=== PATIENT | male | born 1995 | race Caucasian/White ===

== ENCOUNTER 2016-06-19 15:46 | Emergency (ER) | payer BC ==
[~2016-06-19] VITALS: Ht 188 cm; Wt 85.0 kg
[~2016-06-19 15:46] MED LIST: FEXO1TAB58 PO; MULT-506 PO
[2016-06-19 15:49] VITALS: TEMP 36.7; Ht 188 cm; Wt 85.0 kg
[2016-06-19] MEDS ORDERED: LIDOCAINE/EPINEPH/TETRACAINE 1 EA SYR EXT STA (16:06)
[2016-06-19] MEDS ORDERED: IBUPROFEN 600 MG TAB PO STA (16:06)
[2016-06-19] MEDS ORDERED: XYLOCAINE 1%/SOD BICARB 20 ML VIAL INFIL ONE (16:15)
[2016-06-19] MEDS ORDERED: ONDANSETRON 4MG OD TAB PO ONE (16:15)
--- NOTE | 2016-06-19 16:37 | DIAGNOSTIC IMAGING REPORT ---
MAXILLOFACIAL CT WITHOUT CONTRAST CLINICAL HISTORY: Left orbital trauma. COMPARISON STUDY: Nasal bone radiographs December 29, 2010. TECHNIQUE: A maxillofacial CT was performed without IV contrast. Coronal and sagittal reformats were viewed. FINDINGS: No fractures are identified within visualized portions of the cervical spine. There is no skull base fracture. Alignment of the temporomandibular joints is anatomic. The globes are intact. There is a left infraorbital contusion. There is hemorrhage with an air-fluid level within left maxillary sinus. Note is made of a mildly displaced comminuted fracture of the anterior wall the left maxillary sinus as well as the lateral wall of the left maxillary sinus. The pterygoid plates are intact. There is a comminuted, mildly displaced fracture of the left orbital floor which involves the infraorbital foramen. There is slight herniation of a small amount of orbital fat through the defect. There is a comminuted, mildly displaced fracture of the lateral wall the left orbit as well as a mildly displaced fracture of the left zygomatic arch. There is moderate mucosal thickening of the sinuses. A small amount of gas within the left orbit. There is no retrobulbar hematoma. Globes are intact. IMPRESSION: 1. Acute comminuted, mildly displaced left orbital floor fracture which involves the infraorbital foramen with slight herniation of a small amount of orbital fat through the defect. 2. Acute mildly displaced fractures of the anterior and lateral terrell of the left maxillary sinus, the lateral wall of the left orbit and the left zygomatic arch. 3. Small amount of left orbital gas. Left infraorbital contusion. Globes intact with no retrobulbar hematoma. Electronically signed by: Tanmay Gonzalez M.D. 06/19/2016 4:36 PM Dictated Date/Time: 06/19/2016 4:23 PM
[2016-06-19] MEDS ORDERED: AMOX875T PO (17:36)
--- NOTE | 2016-06-19 17:40 | EMERGENCY ROOM VISIT NOTE ---
ED Visit Note First contact with patient: 15:52 CHIEF COMPLAINT: Left facial injury one hour ago History of present illness: He is a 20-year-old white male brought to the emergency department by his father for evaluation of a left facial injury that he sustained about an hour ago. He was playing basketball when he was accidentally elbowed in the face. He was struck below the left eye, on the left cheek. He has a laceration inferior to the left eye. He has left-sided epistaxis which has subsequently resolved. There is bruising and swelling inferior to the left eye. Patient did not lose consciousness, but had to stop playing. He does report a mild generalized headache with some associated nausea. He was seen at the [facility] walk-in clinic and referred to the emergency department for further care and evaluation. He does not wear glasses or contact lenses and states that his vision is not affected. Denies any jaw pain, chipped or loose teeth or malalignment. He denies any neck pain. REVIEW OF SYSTEMS: Review of systems as per HPI. All other systems reviewed were negative. At least 6 systems reviewed. PMH: Electronic medical records are reviewed and summarized as above/below. See Problem List. His tetanus is up-to-date. SOCIAL HISTORY: Patient lives at home with the parents. 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 PHYSICAL EXAM: Vital Signs: Reviewed Nurse's notes. CONSTITUTIONAL: Patient is an uncomfortable-appearing 20-year-old white female who is awake and alert and in no acute distress. His father is at the bedside. HEENT: Normocephalic, atraumatic. Pupils equal, round, reactive to light and accommodation. EOMs intact without nystagmus. Sclera are anicteric. Tympanic membranes intact, with normal landmarks. External canals are clear. No hemotympanum or Díaz sign. Oral is clear. There is dried blood noted in the left nostril, no evidence for septal hematoma. No CSF rhinorrhea. Mucous membranes are moist. FACE: Patient has significant swelling and bruising inferior to the left eye, extending over the inferior orbital bones of the zygomatic. The area is tender to palpation. There is a 2 cm laceration inferior to the left eye. There is no pain over the superior orbital rim. He does have some discomfort over the left TM joint, but jaw opens and closes fully. No malalignment. There is no pain over the mandible. NECK: Supple, nontender, no lymphadenopathy. Full range of motion. SKIN: No lesions or rash, normal skin turgor. EXTREMITIES: No cyanosis, edema, joint tenderness or swelling. No deformity. NEUROLOGICAL: Alert and oriented x4. Cranial nerves 2 through 12, sensation and strength grossly intact. Gait is normal. Patient is able to toe, heel and tandem walk without difficulty. Negative Romberg, and pronator drift. Finger to nose, finger to finger and rapid alternating movements are intact. Immediate , recent and remote memories are intact. Concentration is normal. EMERGENCY DEPARTMENT COURSE: Patient was medicated with ibuprofen and Zofran orally for discomfort. CT scan of the facial bones was obtained, and consistent with comminuted, mildly displaced left orbital floor fracture, mildly displaced fractures of the anterior and lateral terrell of the left maxillary sinus, the lateral wall of the left orbit and the left zygomatic arch. There is no evidence for globe injury or retrobulbar hematoma. The wound was anesthetized with LET gel for 30 minutes. The affected area was cleaned with Betadine and irrigated with saline. The laceration was explored to its base. There was no foreign body in the wound. The skin was closed with 8, 6-0 nylon interrupted sutures. Bacitracin was applied. Patient's CT scan findings were reviewed with plastic surgeon on-call, Dr. Arevalo, who will see the patient in follow-up next week. Clinically, the patient also has symptoms consistent with a mild closed head injury injury. I do not suspect acute intracranial bleed or skull fractures. Do not suspect C- spine injury. Wound/fracture care and closed head injury instructions were outlined with the patient and his parents at length. He will be placed on Augmentin. He was educated on the worrisome signs or symptoms for which she should return to the emergency department. He was discharged home with parents in good condition. He rated his pain a 0/[address] WITHOUT CONTRAST CLINICAL HISTORY: Left orbital trauma. COMPARISON STUDY: Nasal bone radiographs December 29, 2010. TECHNIQUE: A maxillofacial CT was performed without IV contrast. Coronal and sagittal reformats were viewed. FINDINGS: No fractures are identified within visualized portions of the cervical spine. There is no skull base fracture. Alignment of the temporomandibular joints is anatomic. The globes are intact. There is a left infraorbital contusion. There is hemorrhage with an air-fluid level within left maxillary sinus. Note is made of a mildly displaced comminuted fracture of the anterior wall the left maxillary sinus as well as the lateral wall of the left maxillary sinus. The pterygoid plates are intact. There is a comminuted, mildly displaced fracture of the left orbital floor which involves the infraorbital foramen. There is slight herniation of a small amount of orbital fat through the defect. There is a comminuted, mildly displaced fracture of the lateral wall the left orbit as well as a mildly displaced fracture of the left zygomatic arch. There is moderate mucosal thickening of the sinuses. A small amount of gas within the left orbit. There is no retrobulbar hematoma. Globes are intact. IMPRESSION: 1. Acute comminuted, mildly displaced left orbital floor fracture which involves the infraorbital foramen with slight herniation of a small amount of orbital fat through the defect. 2. Acute mildly displaced fractures of the anterior and lateral terrell of the left maxillary sinus, the lateral wall of the left orbit and the left zygomatic arch. 3. Small amount of left orbital gas. Left infraorbital contusion. Globes intact with no retrobulbar hematoma. Current/Historical Medications Scheduled Amoxicillin & Pot Clavulanate (Augmentin 875-125 mg), 1 TAB PO BID Multivitamin (Multivitamin), 1 TAB PO QAM Scheduled PRN Fexofenadine-Pseudoephedrine ([place]-D 24 Hour Allergy), 1 TAB PO QAM PRN for ALLERGIES Allergies Coded Allergies: No Known Allergies (Unverified , 06/19/16) Vital Signs Date Time Temp Pulse Resp B/P Pulse Ox O2 Delivery O2 Flow Rate FiO2 06/19/16 18:19 70 16 101/57 97 06/19/16 17:57 70 16 101/57 97 06/19/16 15:49 36.7 98 18 119/76 96 Room Air Medications Administered Medications (Trade) Dose Ordered Sig/Princess Route Start Time Stop Time Status Last Admin Dose Admin Ondansetron HCl (Zofran Odt) 4 mg ONE ONCE PO 06/19/16 16:15 06/19/16 16:16 DC 06/19/16 16:24 4 MG Ibuprofen (Motrin Tab) 600 mg NOW STAT PO 06/19/16 16:06 06/19/16 16:08 DC 06/19/16 16:24 600 MG Lidocaine HCl (Buffered Lidocaine 1% Inj) 20 ml ONE ONCE INFIL 06/19/16 16:15 06/19/16 16:16 DC 06/19/16 16:24 20 ML Tetracaine/ Epinephrine/ Lidocaine (L.e.t. Gel 4%/ 1:100/0.5%) 1 ea UD STAT EXT 06/19/16 16:06 06/19/16 16:08 DC 06/19/16 16:24 1 EA Departure Information Impression Primary Impression: Multiple facial bone fractures Additional Impressions: Facial laceration Mild concussion Prescriptions Amoxicillin & Pot Clavulanate (Augmentin 875-125 mg) 1 Tab Tab 1 TAB PO BID, #20 TAB Prov: Sandra Streeter PA 06/19/16 Referrals Jose J Danielson M.D. (PCP) Refugio Arevalo M.D. Patient Instructions [facility] Additional Instructions CONCUSSION DISCHARGE INSTRUCTIONS: What is a concussion? A concussion is a disturbance in the function of the brain caused by a direct or indirect force to the head. It results in a variety of symptoms like: headache, balance problems, nausea, vomiting, vision problems, hearing problems/ringing, drowsiness, irritability, and/or difficulty concentrating or remembering. A concussion may, or may not involve memory problems or loss of consciousness. Concussion instructions: Stop and stay away from ALL physical activity until you are symptom free from: Headaches Balance problems Feeling "dinged" Poor concentration Drowsy Fatigued Rest and avoid strenuous activities for the next few days. Get 8-10 hours of sleep per night. Limit activities that involve significant concentration and attention during this time to speed your recovery. This includes studying, attending school, playing video games, and heavy reading. Your brain needs to rest. Eat right and eat often. Now is the time to feed your brain. Well balanced diets that avoid high sugar foods, sodas, caffeine, etc. are better for your brain. NO ALCOHOL OR DRUGS! Avoid stimulants like caffeine, red bull, mountain dew, "energy" drinks, etc. Stepwise return to sports for athletes: You may progress to the next step after 24 hours if you are symptom free. If you experience symptoms, you must return to the previous stage and try again after another 24 hours of rest and being symptom free. Best case scenario is full contact game play in 96 hours from the time of injury. Remember repeat concussions are worse than the first. Time invested in recovery will allow for better performance and less downtime in the future. If you have any questions see your obedience trainer or make an appointment to see one of the team physicians. 1) No activity, complete rest. Once all symptoms have resolved, report to the team physician or obedience trainer to be cleared to progress to step 2. 2) Start light aerobic exercise, such as walking or stationary cycling, no resistance training permitted. 3) Sport specific exercises. Add light resistance slowly. Go slow to allow your body to readapt. 4) Non-contact full speed practice. 5) Full contact practice and/or game play. FOLLOW UP INSTRUCTIONS: You should have a follow up with your family doctor in 3-5 days regarding your injury. POST CONCUSSIVE SYNDROME: Occasionally patients can experience a postconcussive syndrome which includes prolonged headaches and memory difficulties. This may occur over the next several days, weeks or rarely, even months. It is important to have a primary care physician follow-up in order to help if the situation develops. Problems could arise over the next 24 to 48 hours. You should not be left alone and MUST go to the hospital immediately if you: -Have a headache that suddenly gets worse. -Are very drowsy or cannot be woken up from sleep. -Can't recognize people or places. -Have repeated vomiting. -Behave unusually, seemed confused, or start acting irritable. -Have a seizure (arms and legs start jerking uncontrollably). -Have weak or numb arms or legs. -Are unsteady on your feet -Experience slurred speech or difficulty speaking. Keep wound clean and dry. Do not allow any crusting or dried blood to accumulate on sutures. Clean gently with mild soap and water. Use an antibiotic ointment for 3-4 days, then let wound dry. Suture removal in 6-7 days. Ibuprofen(Motrin, Advil) may be used for fever or pain. Use 600mg every six hours as needed. Take with food. Avoid using more than 2400mg in a 24 hour period. Do not use 2400mg per day for more than three consecutive days without physician direction. Prolonged inappropriate use can lead to stomach upset or ulcers. (AND/OR) Acetaminophen(Tylenol) may be used for fever or pain. Use 1000mg every six hours as needed. Avoid using more than 3000mg in a 24 hour period. Augmentin 875 mg: Take one pill twice daily for 10 days to prevent infection. All antibiotics can cause diarrhea. If this occurs and you feel worse or it does not resolve in 1-2 days follow up with your doctor or return to the Emergency Department as this could be signs of serious underlying problems. Any medication can cause an allergic reaction, stop the pills immediately and return to the ER for rash, hives, breathing difficulties, or swelling. Do not blow the nose. Do not hold in sneezes. It is okay to wipe his nose. Use an [id number] decongestant to help facilitate drainage from the sinuses. Sleep with the head of the bed elevated. Follow-up with Dr. Refugio Arevalo next week for recheck of your facial bone fractures and laceration. Call his office on Wednesday to make an appointment. Problem Qualifiers
[2016-06-19 18:19] VITALS: BP 101/57; PULSE 70; O2SAT 97
== END 2016-06-19 18:19 | disposition home or self-care (01) ==
LOC: C.EDB 15:46 → C.EDD 18:19
DX: S01.81XA Laceration without foreign body of other part of head, initial encounter (principal); S06.0X0A Concussion without loss of consciousness, initial encounter; S02.32XA Fracture of orbital floor, left side, initial encounter for closed fracture; S02.40FA Zygomatic fracture, left side, initial encounter for closed fracture; S02.19XA Other fracture of base of skull, initial encounter for closed fracture; W50.0XXA Accidental hit or strike by another person, initial encounter; Y93.67 Activity, basketball